=== PATIENT | male | born 1990 | race Caucasian/White ===

== ENCOUNTER 2023-06-07 07:14 | Emergency (ER) | payer OTHER, SELFPAY ==
[2023-06-07 07:20] VITALS: BP 135/78; PULSE 102; RESP 20; TEMP 36.1; O2SAT 99; BMI 25.8
[2023-06-07] MEDS: ONDANSETRON 4 MG/2 ML INJ IV (07:36)
--- NOTE | 2023-06-07 07:39 | ED.GENADULT ---
HPI - General Adult General Chief complaint: Abdominal Pain Stated complaint: abd pain Time Seen by Provider: 06/07/23 07:39 Source: patient Mode of arrival: Family Vehicle History of Present Illness HPI narrative: 32-year-old male who is here for evaluation of was initially reported as abdominal pain but turns out to be right-sided flank pain radiating around to the front. He does have history of kidney stones. He states that the pain level with this feels somewhat like that. It came on suddenly. Has been having vomiting. No fevers. Has not tried anything for symptoms prior to arrival Related Data Previous Rx's Medication Instructions Recorded hydrocodone 5 mg-acetaminophen 325 1 tab PO Q4-6H PRN pain #14 tabs 06/07/23 mg tablet ondansetron 4 mg disintegrating 4 mg PO Q6H PRN nausea and 06/07/23 tablet vomiting #14 tabs tamsulosin 0.4 mg capsule (Flomax) 0.4 mg PO DAILY #14 caps 06/07/23 Allergies Allergy/AdvReac Type Severity Reaction Status Date / Time No Known Drug Allergies Allergy Verified 06/07/23 07:24 Review of Systems Constitutional Constitutional: Reports system reviewed and no additional complaints, except as documented Cardiovascular Cardiovascular: Reports system reviewed and no additional complaints, except as documented Respiratory Respiratory: Reports system reviewed and no additional complaints, except as documented Gastrointestinal Gastrointestinal: Reports system reviewed and no additional complaints, except as documented Genitourinary Genitourinary: Reports system reviewed and no additional complaints, except as documented Integumentary/Breasts Skin/Breast: Reports system reviewed and no additional complaints, except as documented Patient History Social History Smoking Status: Never smoker Smoking Status: Never smoker alcohol intake frequency: 0-2 drinks per day Substance Use Type: does not use Exam Initial Vital Signs Initial Vital Signs: Vital Signs Temperature 97.0 F L 06/07/23 07:20 Pulse Rate 102 H 06/07/23 07:20 Respiratory Rate 20 06/07/23 07:20 Blood Pressure 135/78 06/07/23 07:20 Pulse Oximetry 99 06/07/23 07:20 Oxygen Delivery Method Room Air 06/07/23 07:20 HENMT Head: normal to inspection and normocephalic Resp Effort & Inspection: normal respiratory effort Auscultation: clear to auscultation bilaterally Cardio Rate: regular rate Rhythm: regular rhythm GI Inspection: normal to inspection and non-distended Palpation: soft and No tender Skin General: no rashes or lesions noted Neuro General: patient alert, patient awake and moves all extremities Speech: speech normal Extrem General: normal to inspection and capillary refill normal Course Orders Ordered: ED Orders 06/07/23 07:29 Complete Blood Count AUTO DIFF Stat Comprehensive Metabolic Panel Stat Lipase Stat 06/07/23 07:49 Urine Microscopic Stat 06/07/23 07:55 CT kidney ureter bladder (KUB) Stat Ondansetron HCl (Ondansetron 4 Mg Odt) 4 mg PO NOW PRN PRN Reason: Nausea And Vomiting Ondansetron HCl (Ondansetron 4 Mg/2 Ml Inj) 4 mg IV NOW PRN PRN Reason: Nausea And Vomiting Last Admin: 06/07/23 07:36 Dose: 4 mg Documented By: MADI Discontinued Medications Hydromorphone HCl (Hydromorphone 1 Mg Inj) 1 mg IV NOW ONE Stop: 06/07/23 08:18 Last Admin: 06/07/23 08:22 Dose: 1 mg Documented By: MADI Ketorolac Tromethamine (Ketorolac 30 Mg/Ml Vial) 30 mg IV NOW ONE Stop: 06/07/23 07:41 Last Admin: 06/07/23 07:42 Dose: 30 mg Documented By: MADI Vital Signs Vital signs: Vital Signs - 8 hr 06/07/23 07:20 06/07/23 08:26 Temperature 97.0 F L Pulse Rate 102 H 71 Respiratory Rate 20 12 Blood Pressure 135/78 124/70 Pulse Oximetry 99 97 Oxygen Delivery Method Room Air Room Air Medical Decision Making Lab Data Lab results reviewed: Yes I reviewed the patient's lab results. 06/07/23 07:29 06/07/23 07:29 Labs: Lab Results 06/07/23 06/07/23 06/07/23 Range/Units 07:29 07:29 07:49 WBC 7.8 (4.5-11.0) X10^3/uL RBC 4.73 (4.5-5.9) X10^6/uL Hgb 14.6 (13.5-17.5) g/dL Hct 42.3 (41-53) % MCV 89.5 (80-100) fL MCH 30.8 (26-34) PG MCHC 34.4 (30-36) % RDW 12.2 (11.6-14.8) % Plt Count 306 (150-400) X10^3/uL Neut % (Auto) 55.4 (50-75) % Lymph % (Auto) 34.2 (25-40) % [place] % (Auto) 8.0 (3-14) % Eos % (Auto) 1.3 L (2-4) % Baso % (Auto) 1.1 (0-2) % Neut # (Auto) 4300 (5333-7885) /uL Lymph # (Auto) 2700 (7906-3337) /uL [place] # (Auto) 600 (0-900) /uL Eos # (Auto) 100 (0-450) /uL Baso # (Auto) 100 (0-100) /uL Sodium 138 (137-145) mmol/L Potassium 4.2 (3.4-5.1) mmol/L Chloride 103 (98-107) mmol/L Carbon Dioxide 24 (22-32) mmol/L BUN 8 L (9-20) mg/dL Creatinine 0.95 (0.66-1.25) mg/dL Estimated GFR > 60 (>60) mL/min BUN/Creatinine Ratio 8.4 (6-22) Glucose 125 H (70-100) mg/dL Calcium 9.3 (8.4-10.2) mg/dL Total Bilirubin 1.3 (0.2-1.3) mg/dL AST 27 (17-59) IU/L ALT 26 (<50) IU/L Alkaline Phosphatase 68 (38-126) U/L Total Protein 7.8 (6.3-8.2) g/dL Albumin 4.5 (3.5-5.0) g/dL Globulin 3.3 (1.7-4.1) g/dL Albumin/Globulin Ratio 1.4 (1.0-2.8) Lipase 62 (23-300) U/L Urine RBC None seen (0-5/HPF) Urine WBC None seen (0-5/HPF) Ur Squamous Epith Cells None seen (0-5/HPF) Urine Bacteria None seen (None) Ur Culture Indicated? Cult not indicated Urine Dip Bedside Urine Glucose Negative Bedside Urine Bilirubin - Negative Bedside Urine Ketone - Negative Urine Specific [place] 1.025 Bedside Urine Occult Blood - Negative Bedside Urine pH 6.0 Bedside Urine Protein +/- 15 Bedside Urine Urobilinogen - Negative Bedside Urine Nitrite - Negative Bedside Urine Leukocytes - Negative Esterase Point of care testing: Urine Dip Bedside Urine Glucose Negative Bedside Urine Bilirubin - Negative Bedside Urine Ketone - Negative Urine Specific [place] 1.025 Bedside Urine Occult Blood - Negative Bedside Urine pH 6.0 Bedside Urine Protein +/- 15 Bedside Urine Urobilinogen - Negative Bedside Urine Nitrite - Negative Bedside Urine Leukocytes - Negative Esterase Imaging Data CT scan - abdomen/pelvis: Radiologist's Impression: PROCEDURE:? CT KIDNEY URETER BLADDER (KUB) ? INDICATIONS:? Right-sided flank pain eval for stone ? TECHNIQUE:? Axial sections were acquired from the lung bases to the pubic symphysis.? Coronal and sagittal reformats were performed.? For radiation dose reduction, the following was used: ?automated exposure control, adjustment of mA and/or kV according to patient size.? ? COMPARISON:? None. ? FINDINGS:? Image quality:? Excellent.? ? Lung bases:? Small hiatal hernia.? ? Heart:? No significant findings. ? URINARY: Right Kidney and ureter:? There is a mid right ureteral stone measuring [address] density 859 HU.? Mild right hydronephrosis is present.? A couple of nonobstructive stones are seen in the right kidney measuring 3 mm and 8 mm.? ? Left Kidney and ureter:? There are few nonobstructive stones measuring 1-3 mm.? No ureteral stones.? No hydro nephrosis or hydroureter. ? Bladder:? Bladder wall appears thickened even though bladder is not fully distended. No stones. ? ? ? ABDOMEN: Liver:? Unremarkable.? ? Gallbladder:? Unremarkable.? ? Biliary ducts:? Unremarkable.? ? Pancreas:? Unremarkable.? ? Spleen:? Unremarkable.? ? Adrenal Glands:? Unremarkable.? ? ? Stomach and Bowel:? Stomach, small bowel loops, and colon are unremarkable.? Normal appendix. Peritoneum:? No abnormal intraperitoneal fluid.? No free air.? ? Ventral Wall: ? No hernia.? Abdominal Nodes:? No enlarged retroperitoneal or mesenteric lymph nodes.? Vessels:? Aorta and inferior vena cava are normal in size.? ? PELVIS: Pelvic Organs:? Unremarkable.? ? Pelvic Nodes: Unremarkable. Miscellaneous: No inguinal hernias are seen. ? ? ? Bones:? Unremarkable. ? IMPRESSION:? ? 1. A 5 mm obstructive stone in the mid right ureter causing mild right hydronephrosis. ? 2.? Nephrolithiasis bilaterally with multiple nonobstructive renal calculi bilaterally.? ? 3.? Bladder wall thickening suggesting cystitis.? Please correlate with urinalysis. [facility] Narrative Medical decision making narrative: Patient has a 5 mm right-sided mid ureteral calculus. His kidney function is unremarkable. Urinalysis shows no signs of infection. He is not vomiting. Not toxic. No indication for admission to the hospital. No indication for urgent urologic consultation. Will discharge patient home with pain medication and nausea medicine. Given the size of the stone will also start on Flomax. He was given return precautions. He expressed understanding and agreement with plan. Discharge Plan Departure Patient Disposition: Home Clinical Impression: Right ureteral stone Instructions: DI for Kidney Stones Activity Restrictions/Additional Instructions: You do have a kidney stone on the right side. Please use the nausea medicine and pain medication and take the tamsulosin/Flomax on a daily basis as directed and to you pass the stone. Recommend you contact your primary doctor for a follow-up. Return to the emergency department for new or worsening symptoms like we discussed. Prescriptions: New ondansetron 4 mg tablet,disintegrating 4 mg PO Q6H PRN (Reason: nausea and vomiting) Qty: 14 0RF hydrocodone-acetaminophen 5-325 mg tablet 1 tab PO Q4-6H PRN (Reason: pain) Qty: 14 0RF tamsulosin [Flomax] 0.4 mg capsule 0.4 mg PO DAILY Qty: 14 0RF Stand Alone Forms: Patient Portal/API, Work Release Note
[2023-06-07 07:41] LABS: Add Manual Diff / Slide Review NO; Basophils Absolute Auto 100 /uL (0-100); Basophils Percent Auto 1.1 % (0-2); Eosinophils Absolute Auto 100 /uL (0-450); Eosinophils Percent Auto 1.3 % (2-4); Hematocrit 42.3 % (41-53); Hemoglobin 14.6 g/dL (13.5-17.5); Lymphocytes Absolute Auto 2700 /uL (1100-4500); Lymphocytes Percent Auto 34.2 % (25-40); Mean Corpuscular HGB Conc 34.4 % (30-36); Mean Corpuscular Hemoglobin 30.8 PG (26-34); Mean Corpuscular Volume 89.5 fL (80-100); Monocytes Absolute Auto 600 /uL (0-900); Neutrophils Absolute Auto 4300 /uL (1500-7000); Neutrophils Percent Auto 55.4 % (50-75); Platelet Count 306 X10^3/uL (150-400); Red Blood Cell Count 4.73 X10^6/uL (4.5-5.9); Red Cell Distribution Width 12.2 % (11.6-14.8); White Blood Cell Count 7.8 X10^3/uL (4.5-11.0)
[2023-06-07] MEDS: KETOROLAC 30 MG/ML VIAL IV (07:42)
[2023-06-07 07:50] LABS: Alanine Aminotransferase 26 IU/L (<50); Albumin 4.5 g/dL (3.5-5.0); Albumin Globulin Ratio 1.4 (1.0-2.8); Alkaline Phosphatase 68 U/L (38-126); Aspartate Aminotransferase 27 IU/L (17-59); BUN Creatinine Ratio 8.4 (6-22); Bilirubin Total 1.3 mg/dL (0.2-1.3); Blood Urea Nitrogen 8 mg/dL (9-20); Calcium 9.3 mg/dL (8.4-10.2); Carbon Dioxide 24 mmol/L (22-32); Chloride 103 mmol/L (98-107); Estimated Glomerular Filt Rate > 60 mL/min (>60); Globulin 3.3 g/dL (1.7-4.1); Glucose 125 mg/dL (70-100); HEMOLYSIS < 15 (0-50); Lipase 62 U/L (23-300); Potassium 4.2 mmol/L (3.4-5.1); Sodium 138 mmol/L (137-145); Total Protein 7.8 g/dL (6.3-8.2)
--- NOTE | 2023-06-07 07:55 | DI.CT.S_ITS ---
PROCEDURE: CT KIDNEY URETER BLADDER (KUB) INDICATIONS: Right-sided flank pain eval for stone TECHNIQUE: Axial sections were acquired from the lung bases to the pubic symphysis. Coronal and sagittal reformats were performed. For radiation dose reduction, the following was used: automated exposure control, adjustment of mA and/or kV according to patient size. COMPARISON: None. FINDINGS: Image quality: Excellent. Lung bases: Small hiatal hernia. Heart: No significant findings. URINARY: Right Kidney and ureter: There is a mid right ureteral stone measuring [address] density 859 HU. Mild right hydronephrosis is present. A couple of nonobstructive stones are seen in the right kidney measuring 3 mm and 8 mm. Left Kidney and ureter: There are few nonobstructive stones measuring 1-3 mm. No ureteral stones. No hydro nephrosis or hydroureter. Bladder: Bladder wall appears thickened even though bladder is not fully distended. No stones. ABDOMEN: Liver: Unremarkable. Gallbladder: Unremarkable. Biliary ducts: Unremarkable. Pancreas: Unremarkable. Spleen: Unremarkable. Adrenal Glands: Unremarkable. Stomach and Bowel: Stomach, small bowel loops, and colon are unremarkable. Normal appendix. Peritoneum: No abnormal intraperitoneal fluid. No free air. Ventral Wall: No hernia. Abdominal Nodes: No enlarged retroperitoneal or mesenteric lymph nodes. Vessels: Aorta and inferior vena cava are normal in size. PELVIS: Pelvic Organs: Unremarkable. Pelvic Nodes: Unremarkable. Miscellaneous: No inguinal hernias are seen. Bones: Unremarkable. IMPRESSION: 1. A 5 mm obstructive stone in the mid right ureter causing mild right hydronephrosis. 2. Nephrolithiasis bilaterally with multiple nonobstructive renal calculi bilaterally. 3. Bladder wall thickening suggesting cystitis. Please correlate with urinalysis. Dictated by: Emy Park M.D. on 06/07/2023 at 7:59 Approved by: Emy Park M.D. on 06/07/2023 at 8:05
[2023-06-07 08:05] LABS: Bacteria Urine None Seen; Culture Indicated Urine Cult Not Indicated; RBC Urine None Seen (0-5/HPF); Squamous Epithelial Cell Urine None Seen (0-5/HPF); WBC Urine None Seen (0-5/HPF)
[2023-06-07] MEDS: HYDROMORPHONE 1 MG INJ IV (08:22)
[2023-06-07 08:25] VITALS: BP 124/80; PULSE 98; RESP 14; O2SAT 99
[2023-06-07 08:26] VITALS: BP 124/70; PULSE 71; RESP 12; O2SAT 97
[2023-06-07 08:30] VITALS: BP 125/83; PULSE 70; RESP 15; O2SAT 96
[2023-06-07 09:00] VITALS: BP 132/74; PULSE 69; O2SAT 98
[2023-06-07 09:30] VITALS: BP 125/82; PULSE 67; O2SAT 98
[2023-06-07] MEDS: HYDROCODONE/ACET 5/325 TABLET 1 TAB PO (09:32)
== END 2023-06-07 09:50 | disposition home or self-care (01) ==
PROVIDERS: Emergency Provider Emergency Medicine
DX: N20.1 Calculus of ureter (principal)
CPT/HCPCS: 36415; 74176; 80053; 81003; 81015; 83690; 85025; 96374; 96375; 99284; J1170; J1885; J2405

== ENCOUNTER 2023-10-17 13:19 | Emergency (ER) | payer OTHER, SELFPAY ==
[2023-10-17] VITALS (9 sets, daily range): BP systolic 119–149; BP diastolic 64–79; PULSE 96–110; RESP 18; TEMP 36.6; O2SAT 96–100; BMI 25.8
[2023-10-17] MEDS: ONDANSETRON 4 MG/2 ML INJ IV (14:01)
[2023-10-17 14:07] LABS: Add Manual Diff / Slide Review NO; Basophils Absolute Auto 100 /uL (0-100); Basophils Percent Auto 0.3 % (0-2); Eosinophils Absolute Auto 0 /uL (0-450); Hematocrit 43.8 % (41-53); Hemoglobin 15.2 g/dL (13.5-17.5); Lymphocytes Absolute Auto 800 /uL (1100-4500); Lymphocytes Percent Auto 5.1 % (25-40); Mean Corpuscular HGB Conc 34.7 % (30-36); Mean Corpuscular Hemoglobin 30.9 PG (26-34); Mean Corpuscular Volume 89.1 fL (80-100); Monocytes Absolute Auto 600 /uL (0-900); Monocytes Percent Auto 3.9 % (3-14); Neutrophils Absolute Auto 14100 /uL (1500-7000); Neutrophils Percent Auto 90.7 % (50-75); Platelet Count 261 X10^3/uL (150-400); Red Blood Cell Count 4.92 X10^6/uL (4.5-5.9); Red Cell Distribution Width 12.1 % (11.6-14.8); White Blood Cell Count 15.5 X10^3/uL (4.5-11.0)
[2023-10-17 14:16] LABS: Alanine Aminotransferase 23 IU/L (<50); Albumin 4.7 g/dL (3.5-5.0); Albumin Globulin Ratio 1.3 (1.0-2.8); Alkaline Phosphatase 73 U/L (38-126); Aspartate Aminotransferase 27 IU/L (17-59); BUN Creatinine Ratio 9.4 (6-22); Bilirubin Total 1.1 mg/dL (0.2-1.3); Blood Urea Nitrogen 11 mg/dL (9-20); Calcium 9.9 mg/dL (8.4-10.2); Carbon Dioxide 25 mmol/L (22-32); Chloride 104 mmol/L (98-107); Estimated Glomerular Filt Rate > 60 mL/min (>60); Globulin 3.6 g/dL (1.7-4.1); Glucose 136 mg/dL (70-100); HEMOLYSIS < 15 (0-50); Lipase 52 U/L (23-300); Potassium 4.2 mmol/L (3.4-5.1); Sodium 138 mmol/L (137-145); Total Protein 8.3 g/dL (6.3-8.2)
[2023-10-17 14:43] LABS: Bacteria Urine None Seen; Culture Indicated Urine Cult Not Indicated; RBC Urine 5-10/HPF (0-5/HPF); Squamous Epithelial Cell Urine None Seen (0-5/HPF); Urine Volume 10mL (spun); WBC Urine None Seen (0-5/HPF)
--- NOTE | 2023-10-17 15:22 | ED_ITS ---
HPI - General Adult General Chief complaint: Urogenital-Male Stated complaint: KIDNEY STONE NAUSEOUS Time Seen by Provider: 10/17/23 15:13 Source: patient Mode of arrival: Ambulatory History of Present Illness HPI narrative: Patient is a 33-year-old male. Has a history of multiple kidney stones. He is always passed his stones in the past. Has never needed stenting. He is here for evaluation he had an onset of right-sided flank discomfort that started this morning. He states it feels like a prior stone. Is having urinary hesitancy and hematuria. No vomiting. No fevers. Is having some nausea. He did take a Flomax at home and Zofran and pain medication with minimal relief. Related Data Previous Rx's Medication Instructions Recorded hydrocodone 5 mg-acetaminophen 325 1 tab PO Q4-6H PRN pain #14 tabs 06/07/23 mg tablet ondansetron 4 mg disintegrating 4 mg PO Q6H PRN nausea and 06/07/23 tablet vomiting #14 tabs tamsulosin 0.4 mg capsule (Flomax) 0.4 mg PO DAILY #14 caps 06/07/23 hydrocodone 5 mg-acetaminophen 325 1 tab PO Q4-6H PRN pain #10 tabs 10/17/23 mg tablet ondansetron 4 mg disintegrating 4 mg PO Q6H PRN nausea and 10/17/23 tablet vomiting #14 tabs tamsulosin 0.4 mg capsule (Flomax) 0.4 mg PO DAILY #14 caps 10/17/23 Allergies Allergy/AdvReac Type Severity Reaction Status Date / Time No Known Drug Allergies Allergy Verified 10/17/23 13:45 Review of Systems Constitutional Constitutional: Reports system reviewed and no additional complaints, except as documented Cardiovascular Cardiovascular: Reports system reviewed and no additional complaints, except as documented Respiratory Respiratory: Reports system reviewed and no additional complaints, except as documented Gastrointestinal Gastrointestinal: Reports system reviewed and no additional complaints, except as documented Genitourinary Genitourinary: Reports system reviewed and no additional complaints, except as documented Integumentary/Breasts Skin/Breast: Reports system reviewed and no additional complaints, except as documented Neurologic Neurologic: Reports system reviewed and no additional complaints, except as documented Hematologic/Lymphatic On Anticoagulants: No Patient History Social History Smoking Status: Never smoker Smoking Status: Never smoker alcohol intake frequency: 0-2 drinks per day Substance Use Type: does not use Exam Initial Vital Signs Initial Vital Signs: Vital Signs Temperature 97.9 F 10/17/23 13:41 Pulse Rate 99 H 10/17/23 13:41 Respiratory Rate 18 10/17/23 13:41 Blood Pressure 120/79 10/17/23 13:41 Pulse Oximetry 99 10/17/23 13:41 Oxygen Delivery Method Room Air 10/17/23 13:41 Const General: cooperative, comfortable and No ill appearing HENOH Head: normal to inspection and normocephalic Resp Effort & Inspection: normal respiratory effort Auscultation: clear to auscultation bilaterally Cardio Rate: regular rate Rhythm: regular rhythm GI Inspection: normal to inspection and non-distended Skin General: no rashes or lesions noted Neuro General: patient alert and patient awake Extrem General: capillary refill normal Course Orders Ordered: ED Orders 10/17/23 14:00 Complete Blood Count AUTO DIFF Stat Comprehensive Metabolic Panel Stat Lipase Stat 10/17/23 14:15 Urine Microscopic Stat 10/17/23 15:22 CT kidney ureter bladder (KUB) Stat Discontinued Medications Sodium Chloride (Normal Saline 0.9%) 1,000 mls @ 1,000 mls/hr IV BOLUS ONE Stop: 10/17/23 16:21 Last Infusion: 10/17/23 16:24 Dose: Infused Documented By: Admin: 10/17/23 15:33 Dose: 1,000 mls/hr Documented By: MACI Ketorolac Tromethamine (Ketorolac 30 Mg/Ml Vial) 30 mg IV NOW ONE Stop: 10/17/23 15:23 Last Admin: 10/17/23 15:33 Dose: 30 mg Documented By: MACI Ondansetron HCl (Ondansetron 4 Mg/2 Ml Inj) 4 mg IV NOW PRN PRN Reason: Nausea And Vomiting Last Admin: 10/17/23 14:01 Dose: 4 mg Documented By: GABE Ondansetron HCl (Ondansetron 4 Mg Odt) 4 mg PO NOW PRN PRN Reason: Nausea And Vomiting Vital Signs Vital signs: Vital Signs - 8 hr 10/17/23 13:41 10/17/23 15:11 10/17/23 15:24 Temperature 97.9 F Pulse Rate 99 H 101 H 97 H Respiratory Rate 18 Blood Pressure 120/79 Pulse Oximetry 99 98 97 Oxygen Delivery Method Room Air Room Air 10/17/23 15:24 10/17/23 15:32 10/17/23 15:34 Temperature Pulse Rate 105 H 96 H Respiratory Rate Blood Pressure 138/64 Pulse Oximetry 98 100 Oxygen Delivery Method Room Air 10/17/23 15:34 10/17/23 16:00 10/17/23 16:00 Temperature Pulse Rate 100 H Respiratory Rate Blood Pressure 149/73 H 133/66 Pulse Oximetry 99 Oxygen Delivery Method Room Air 10/17/23 16:30 10/17/23 16:30 10/17/23 17:00 Temperature Pulse Rate 110 H 110 H Respiratory Rate Blood Pressure 119/71 Pulse Oximetry 98 96 Oxygen Delivery Method Room Air 10/17/23 17:00 10/17/23 17:13 Temperature Pulse Rate 108 H Respiratory Rate 18 Blood Pressure 125/66 125/66 Pulse Oximetry 96 Oxygen Delivery Method Room Air Medical Decision Making Lab Data Lab results reviewed: Yes I reviewed the patient's lab results. 10/17/23 14:00 10/17/23 14:00 Labs: Lab Results 10/17/23 10/17/23 Range/Units 14:00 14:15 WBC 15.5 H (4.5-11.0) X10^3/uL RBC 4.92 (4.5-5.9) X10^6/uL Hgb 15.2 (13.5-17.5) g/dL Hct 43.8 (41-53) % MCV 89.1 (80-100) fL MCH 30.9 (26-34) PG MCHC 34.7 (30-36) % RDW 12.1 (11.6-14.8) % Plt Count 261 (150-400) X10^3/uL Neut % (Auto) 90.7 H (50-75) % Lymph % (Auto) 5.1 L (25-40) % [place] % (Auto) 3.9 (3-14) % Eos % (Auto) 0.0 L (2-4) % Baso % (Auto) 0.3 (0-2) % Neut # (Auto) 75691 H (4620-2305) /uL Lymph # (Auto) 800 L (4231-8590) /uL [place] # (Auto) 600 (0-900) /uL Eos # (Auto) 0 (0-450) /uL Baso # (Auto) 100 (0-100) /uL Sodium 138 (137-145) mmol/L Potassium 4.2 (3.4-5.1) mmol/L Chloride 104 (98-107) mmol/L Carbon Dioxide 25 (22-32) mmol/L BUN 11 (9-20) mg/dL Creatinine 1.17 (0.66-1.25) mg/dL Estimated GFR > 60 (>60) mL/min BUN/Creatinine Ratio 9.4 (6-22) Glucose 136 H (70-100) mg/dL Calcium 9.9 (8.4-10.2) mg/dL Total Bilirubin 1.1 (0.2-1.3) mg/dL AST 27 (17-59) IU/L ALT 23 (<50) IU/L Alkaline Phosphatase 73 (38-126) U/L Total Protein 8.3 H (6.3-8.2) g/dL Albumin 4.7 (3.5-5.0) g/dL Globulin 3.6 (1.7-4.1) g/dL Albumin/Globulin Ratio 1.3 (1.0-2.8) Lipase 52 (23-300) U/L Urine RBC 5-10/hpf H (0-5/HPF) Urine WBC None seen (0-5/HPF) Ur Squamous Epith Cells None seen (0-5/HPF) Urine Bacteria None seen (None) Ur Culture Indicated? Cult not indicated Vol Urine Centrifuged 10ml (spun) Urine Dip Bedside Urine Glucose Negative Bedside Urine Bilirubin - Negative Bedside Urine Ketone +/- 5 Urine Specific [place] 1.025 Bedside Urine Occult Blood ++ Bedside Urine pH 6 Bedside Urine Protein - Negative Bedside Urine Urobilinogen - Negative Bedside Urine Nitrite - Negative Bedside Urine Leukocytes - Negative Esterase Point of care testing: Urine Dip Bedside Urine Glucose Negative Bedside Urine Bilirubin - Negative Bedside Urine Ketone +/- 5 Urine Specific [place] 1.025 Bedside Urine Occult Blood ++ Bedside Urine pH 6 Bedside Urine Protein - Negative Bedside Urine Urobilinogen - Negative Bedside Urine Nitrite - Negative Bedside Urine Leukocytes - Negative Esterase Imaging Data CT scan - abdomen/pelvis: Radiologist's Impression: PROCEDURE: CT KIDNEY URETER BLADDER (KUB) INDICATIONS: R side flank pain eval for stone TECHNIQUE: Axial sections were acquired from the lung bases to the pubic symphysis. Coronal and sagittal reformats were performed. For radiation dose reduction, the following was used: automated exposure control, adjustment of mA and/or kV according to patient size. COMPARISON: [facility], CT, CT KIDNEY URETER BLADDER (KUB), 06/07/2023, 7:59. FINDINGS: Image quality: Diagnostic. Lower Chest: No significant findings. URINARY: Right Kidney: Nonobstructing right-sided kidney stones are seen that measure up to 7 mm, with a density of 700 Hounsfield units. There is moderate to prominent right- sided hydronephrosis. Right Ureter: There is an obstructing stone seen at the right ureterovesicular junction, as on series 2, image 81 measuring 5 mm and 500 Hounsfield units. There is at least moderate right-sided hydroureter. Left Kidney: Nonobstructing left-sided kidney stones are seen that measure up to 5 mm and 500 Hounsfield units. No left-sided hydronephrosis is seen. Left Ureter: No hydroureter. Bladder: Normal wall thickness. No stones. ABDOMEN: Liver: No contour-deforming solid mass. Gallbladder: No radiopaque gallstones or wall thickening. Biliary ducts: No biliary dilation. Pancreas: No ductal dilation. Spleen: Size is within normal limits. Adrenal Glands: No adrenal nodules. Stomach and Bowel: A normal appendix is seen. No dilated loops of small bowel are seen. The colon is relatively decompressed. Peritoneum: No abnormal intraperitoneal fluid. No free air. Ventral Wall: No hernia. Abdominal Nodes: No enlarged retroperitoneal or mesenteric lymph nodes. Vessels: Aorta and inferior vena cava are normal in size. PELVIS: Pelvic Organs: Unremarkable. Pelvic Nodes: Unremarkable. Miscellaneous: No inguinal hernias are seen. Bones: Unremarkable. IMPRESSION: There is a 5 mm obstructing stone at the right ureterovesicular junction, with associated right-sided hydroureter and hydronephrosis. Nonobstructing bilateral renal stones are seen. Dictated by: Randy Mirza M.D. on 10/17/2023 at 14:45 Approved by: Randy Mirza M.D. on 10/17/2023 at 14:47 MDM Narrative Medical decision making narrative: Discussed the risks and benefits of obtaining a CT scan today. Informed him that I did not necessarily need a CT scan due diagnosis stone however having the scan would show a size and location. We did discuss that we could obtain a ultrasound and evaluate for hydro. Patient stated that he would like to have a CT scan despite this conversation. He does have a leukocytosis however no specific signs of infection. Urinalysis shows no signs of infection. Kidney function is unremarkable. No indication for emergent urologic consultation. Will discharge patient home with a refill of his medications. Advised that he follow-up with urology since he has had multiple kidney stones in the past. He expressed understanding and agreement. Discharge Plan Departure Patient Disposition: Home Clinical Impression: Right ureteral stone Instructions: DI for Kidney Stones Activity Restrictions/Additional Instructions: Continue to do the Flomax on a daily basis into you pass the stone. Nausea medicine and pain medication as needed. Increase your fluid intake. Return to the emergency department for new symptoms. Prescriptions: New tamsulosin [Flomax] 0.4 mg capsule 0.4 mg PO DAILY Qty: 14 0RF ondansetron 4 mg tablet,disintegrating 4 mg PO Q6H PRN (Reason: nausea and vomiting) Qty: 14 0RF hydrocodone-acetaminophen 5-325 mg tablet 1 tab PO Q4-6H PRN (Reason: pain) Qty: 10 0RF No Action ondansetron 4 mg tablet,disintegrating 4 mg PO Q6H PRN (Reason: nausea and vomiting) Qty: 14 0RF hydrocodone-acetaminophen 5-325 mg tablet 1 tab PO Q4-6H PRN (Reason: pain) Qty: 14 0RF tamsulosin [Flomax] 0.4 mg capsule 0.4 mg PO DAILY Qty: 14 0RF Referrals: James Paolmino MD [Physician] - Miscellaneous,MD Cherie [Primary Care Provider] - Stand Alone Forms: Patient Portal/API, Work Release Note
[2023-10-17] MEDS: SODIUM CHLORIDE 0.9% 1,000 ML 1000 ML IV (15:33)
[2023-10-17] MEDS: KETOROLAC 30 MG/ML VIAL IV (15:33)
--- NOTE | 2023-10-17 16:45 | PC.NURSE ---
Pt's son and ex called the department phone and ex requested to go see patient to drop off his son. Pt requested I walk the 8 year old son in to his mom. Pt's ex released the 8 year old to walk with me to his dad's room. I walked his son back to him after getting mom's permission without bringing her back, per patients request.
== END 2023-10-17 17:13 | disposition home or self-care (01) ==
PROVIDERS: Emergency Provider Emergency Medicine
DX: N20.1 Calculus of ureter (principal); R11.0 Nausea
CPT/HCPCS: 36415; 74176; 80053; 81003; 81015; 83690; 85025; 96361; 96374; 96375; 99284; J1885; J2405